=== PATIENT | female | born 1980 | race Two or more races ===

== ENCOUNTER 2019-01-05 18:46 | Emergency (ER) | payer BC, MEDICAID ==
[~2019-01-05] VITALS: Ht 149.9 cm; Wt 142.4 kg
--- NOTE | 2019-01-05 19:15 | NUR ---
PT BIBSELF C/O COUGH X5 DAYS. PT AAOX4. RESPIRATIONS EVEN AND UNLABORED. NO ACUTE DISTRESS NOTED AT THIS TIME. WILL CONTINUE TO MONITOR.
--- NOTE | 2019-01-05 19:27 | NUR ---
RADIOLOGY AT BEDSIDE FOR CXR
[2019-01-05] MEDS ORDERED: ALBUTEROL FS 2.5 MG/3 ML VIAL.NEB NEB ONE (19:30)
[2019-01-05] MEDS ORDERED: IPRATROPIUM NEB FS 0.5 MG/2.5 ML AMPUL.NEB NEB ONE (19:30)
[2019-01-05] MEDS ORDERED: predniSONE 20 MG TABLET PO ONE (19:30)
[2019-01-05] MEDS ORDERED: predniSONE 20 MG TABLET ONE (19:34)
--- NOTE | 2019-01-05 19:48 | NUR ---
RT AT BEDSIDE FOR BREATHING TREATMENT
[2019-01-05] MEDS ORDERED: IPRATROPIUM NEB FS 0.5 MG/2.5 ML AMPUL.NEB ONE (19:50)
[2019-01-05] MEDS ORDERED: ALBUTEROL FS 2.5 MG/3 ML VIAL.NEB ONE (19:50)
[2019-01-05 20:51] VITALS: BP 147/87
--- NOTE | 2019-01-05 20:51 | NUR ---
Patient discharged to home in stable condition. Written and verbal after care instructions given. Patient verbalizes understanding of instruction.Pt ambulatory with a steady gait
== END 2019-01-05 20:52 | disposition home or self-care (01) ==
LOC: ER 18:47
DX: J06.9 Acute upper respiratory infection, unspecified (principal); J45.901 Unspecified asthma with (acute) exacerbation
CPT/HCPCS: 71045; 93005; 94640; 99283; J7512

== ENCOUNTER 2019-01-09 16:48 | Emergency (ER) | payer BC, MEDICAID ==
[~2019-01-09] VITALS: Ht 152.4 cm; Wt 142.9 kg
[2019-01-09 18:11] VITALS: BP 120/61
--- NOTE | 2019-01-09 18:12 | NUR ---
Patient discharged to home in stable condition. Written and verbal after care instructions given. Patient verbalizes understanding of instruction.
== END 2019-01-09 18:13 | disposition home or self-care (01) ==
LOC: ER 16:53
DX: J06.9 Acute upper respiratory infection, unspecified (principal); J45.909 Unspecified asthma, uncomplicated